=== PATIENT | male | born 1990 | race African-American/Black ===

== ENCOUNTER 2016-09-03 13:43 | Emergency (ER) | payer OTHER ==
[2016-09-03 13:47] VITALS: BP 120/62; PULSE 113; TEMP 98.9; BMI 22.9
[2016-09-03] MEDS ORDERED: ONDANSETRON *ODT* 4 MG TABLET SL ONE (16:31)
[2016-09-03] MEDS ORDERED: SODIUM CHLORIDE 0.9% 1000 ML INFUS.BAG IV ONE (16:32)
--- NOTE | 2016-09-03 16:33 | PDOC ---
History of Present Illness - General Chief Complaint: Nausea/Vomiting Stated Complaint: WEAKNESS,VOMITING,CHILLS Time Seen by Provider: 09/03/16 16:07 History Source: Patient Exam Limitations: No Limitations - History of Present Illness Travel History: No Initial Comments: 09/03/16 16:28 Timing/Duration: reports: constant Abdominal Pain Onset Location: reports: generalized abdomen Past History - Travel Traveled outside of the country in the last 30 days: No Close contact w/someone who was outside of country & ill: No - Past Medical History Allergies/Adverse Reactions: Allergies Allergy/AdvReac Type Severity Reaction Status Date / Time No Known Allergies Allergy Verified 09/03/16 13:45 Home Medications: Ambulatory Orders Ondansetron [Zofran *Odt*] 4 mg SL PRN PRN #14 od.tablet 09/03/16 - Surgical History Neurologic Surgery: Yes (scar) - Immunization History Immunization Up to Date: Yes - Psycho/Social/Smoking Cessation Hx Anxiety: No Suicidal Ideation: No Smoking Status: Yes Smoking History: Current some day smoker Number of Cigarettes Smoked Daily: 6 Information on smoking cessation initiated: No 'Breaking Loose' booklet given: 04/25/13 Hx Alcohol Use: Yes Review of Systems - Review of Systems Able to Perform ROS?: Yes Is the patient limited Grenadian proficient: Yes Constitutional: Yes: Symptoms Reported, See HPI, Chills, Fever, Loss of Appetite , Malaise HEENTM: No: Symptoms Reported Respiratory: No: Symptoms reported ABD/GI: Yes: Symptoms Reported, Nausea, Vomiting : Yes: See HPI. No: Symptoms Reported Integumentary: No: Symptoms Reported Neurological: Yes: Symptoms reported, See HPI, Headache All Other Systems: Reviewed and Negative *Physical Exam - Vital Signs Last Vital Signs Temp Pulse Resp BP Pulse Ox 98.9 F 113 H 120/62 98 09/03/16 13:45 09/03/16 13:45 09/03/16 13:45 09/03/16 13:45 - Physical Exam General Appearance: Yes: Nourished, Appropriately Dressed, Apparent Distress, Moderate Distress HEENT: positive: RODRICK, Normal ENT Inspection, TMs Normal, Pharynx Normal Neck: positive: Supple. negative: Lymphadenopathy (R) Respiratory/Chest: positive: Lungs Clear, Normal Breath Sounds Cardiovascular: positive: Regular Rhythm Gastrointestinal/Abdominal: positive: Tender (diffuse ), Soft, Increased Bowel Sounds, Tenderness. negative: Distended, Guarding, Rebound, Hepatomegaly, Spleenomegaly Musculoskeletal: positive: Normal Inspection. negative: CVA Tenderness (L) Extremity: positive: Normal Capillary Refill, Normal Inspection, Normal Range of Motion Integumentary: positive: Dry, Warm, Pale Neurologic: positive: branch retail executive II-XII NML intact, Fully Oriented, Alert, Normal Mood/ Affect, Normal Response, Motor Strength 08/13 ED Treatment Course - LABORATORY CBC & Chemistry Diagram: 09/03/16 16:43 09/03/16 16:43 Progress Note - Progress Note Progress Note: Gastroenteritis , acute onset. Probably related to some tainted chicken ingestion yesterday. Sisiter Is ill with the same. Will treat with IV fluids, and zofran Medical Decision Making - Medical Decision Making 09/03/16 17:45 Much improved after 2 litrers of IV fluids, and Zofran. Ready for DC 09/03/16 18:43 *DC/Admit/Observation/Transfer Diagnosis at time of Disposition: Gastroenteritis - Discharge Dispostion Disposition: HOME Condition at time of disposition: Stable Admit: No - Prescriptions Prescriptions: Ondansetron [Zofran *Odt*] 4 mg SL PRN PRN #14 od.tablet PRN Reason: vomiting - Referrals Referrals: Padilla Hernandez MD [Primary Care Provider] - - Patient Instructions Printed Discharge Instructions: DI for Vomiting -- Adult Additional Instructions: Rest, drink lots of fluids: Teas, water, soups Rubi tari, carbonated beverages for the bubbles May try peppermint teas Avoid heavy , spicy or fatty foods until symptoms have resolved Avoid contact with others until fevers and symptoms resolved Lots of handwashing and good hygiene Continue [id number] medications for symptomatic relief Tylenol or Motrin for fever and pain May use Zofran-one tablet dissolved on tongue as needed for nauseousness. May repeat times one every 8 hours Followup with private physician in one to 2 days as needed Return to emergency department for worsened symptoms, fevers, dehydration - Post Discharge Activity Work/School Note: Back to Work
[2016-09-03] MEDS ORDERED: ONDANSETRON *ODT* 4 MG TABLET ONE (16:40)
[2016-09-03 16:49] LABS: URINE APPEARANCE CLEAR; URINE BILIRUBIN NEGATIVE (NEGATIVE); URINE COLOR YELLOW; URINE GLUCOSE (UA) NEGATIVE (NEGATIVE); URINE KETONE NEGATIVE (NEGATIVE); URINE LEUK ESTERASE NEGATIVE (NEGATIVE); URINE NITRITE NEGATIVE (NEGATIVE); URINE UROBILINOGEN NEGATIVE E.U./dl (0.2-1.0)
[2016-09-03 16:53] LABS: URINE BLOOD 1+ (NEGATIVE); URINE PROTEIN 1+ (NEGATIVE)
[2016-09-03 16:58] LABS: URINE MUCUS FEW; URINE RBC 3 /hpf (0-3)
[2016-09-03 17:02] LABS: BASOPHIL 0.2 % (0-2.0); EOSINOPHIL 0.7 % (0-4.5); MCH 26.6 pg (25.7-33.7); MCHC 31.7 g/dl (32.0-35.9); MEAN CELL VOLUME 83.7 fl (80-96); MEAN PLT VOLUME 7.9 fl (7.5-11.1); NEUTROPHILS 86.6 % (42.8-82.8); PLATELET COUNT 292 K/MM3 (134-434); WHITE BLOOD COUNT 12.1 K/mm3 (4.0-10.0)
== END 2016-09-03 18:16 | disposition home or self-care (01) ==
LOC: JERFT 13:43 → JER 13:43 → JERFT 18:16
DX: K52.9 Noninfective gastroenteritis and colitis, unspecified (principal)
CPT/HCPCS: 36415; 81003; 81015; 85025; 99281-25

== ENCOUNTER 2023-08-02 08:31 | Emergency (ER) | payer SELFPAY ==
[2023-08-02 08:36] VITALS: BP 125/83; PULSE 99; RESP 20; TEMP 98.9; BMI 24.0
== END 2023-08-02 10:08 | disposition home or self-care (01) ==
LOC: JER 08:31
DX: K02.9 Dental caries, unspecified (principal); K08.89 Other specified disorders of teeth and supporting structures; G89.29 Other chronic pain
CPT/HCPCS: 99283-25